=== PATIENT | female | born 1985 | race American Indian/Alaskan Native ===

== ENCOUNTER 2021-09-28 12:23 | Emergency (ER) | payer BC ==
[2021-09-28] MEDS ORDERED: KETOROLAC 10 MG TAB PO ONE (14:58)
[2021-09-28] MEDS ORDERED: predniSONE 20 MG TAB PO ONE (14:58)
[2021-09-28] MEDS ORDERED: CYCLOBENZAPRINE 10 MG TAB PO ONE (14:58)
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
[2021-09-28 17:39] VITALS: BP 126/78
== END 2021-09-28 17:39 | disposition home or self-care (01) ==
LOC: ED 12:23
DX: M54.2 Cervicalgia (principal); M25.512 Pain in left shoulder; V87.7XXA Person injured in collision between other specified motor vehicles (traffic), initial encounter; Y93.89 Activity, other specified; Y92.488 Other paved roadways as the place of occurrence of the external cause; Y99.8 Other external cause status
CPT/HCPCS: 99282